=== PATIENT | female | born 1965 | race Caucasian/White ===

== ENCOUNTER 2019-02-21 11:18 | Day surgery (SDC) | payer OTHER, BC ==
[2019-02-21] MEDS ORDERED: FENTAnyl 50 MCG/ML VIAL (15:08)
[2019-02-21] MEDS ORDERED: MIDAZOLAM 1 MG/ML 2 ML INJ ×2 (15:08)
== END 2019-02-21 16:21 | disposition home or self-care (01) ==
LOC: GIL 11:18
DX: Z12.11 Encounter for screening for malignant neoplasm of colon (principal); D12.5 Benign neoplasm of sigmoid colon; K64.8 Other hemorrhoids
CPT/HCPCS: 45385; 88305